=== PATIENT | female | born 1990 | race Caucasian/White ===

== ENCOUNTER 2017-02-15 21:03 | Emergency (ER) | payer BC, MEDICAID ==
[2017-02-15 21:59] VITALS: BMI 24.1
[2017-02-15 22:17] VITALS: BP 116/69; PULSE 100; RESP 24; TEMP 98.3; O2SAT 100
[2017-02-15] MEDS ORDERED: Naproxen 550 mg Tab PO STA (22:25)
--- NOTE | 2017-02-15 22:30 | ED PDOC ---
Arrival/HPI - General Historian: Patient - General Time Seen by Provider: 02/15/17 21:25 - History of Present Illness Narrative History of Present Illness (Text): 02/16/17 01:01 26 yo F with pmh of lupus presents c/o intermittent pain described as a burning sensation to the MTP joints of the L foot x 1.5 wks with stiffness in the AM. States that she has had similar pain to the MTP joins of the R foot before, none today. Denies any trauma, injury, redness, swelling, fever, or any other joint pain at this time. Patient states that she is currently on prednisone daily and she does have a moving worker which she does f/u with. PMD [facility] (Sunil ARGUELLES,Noemí King) Past Medical History - Provider Review Nursing Documentation Reviewed: Yes - Past History Past History: No Previous - Infectious Disease Hx of Infectious Diseases: None - Tetanus Immunization Tetanus Immunization: Unknown - Past Medical History Past Medical History: No Previous - Cardiac Hx Cardiac Disorders: No - Pulmonary Hx Respiratory Disorders: No - Neurological Hx Neurological Disorder: No - HEENT Hx HEENT Disorder: No - Renal Hx Renal Disorder: No - Endocrine/Metabolic Hx Endocrine Disorders: Yes Hx Systemic Lupus Erythematosus: Yes - Hematological/Oncological Hx Blood Disorders: No - Integumentary Hx Dermatological Disorder: No - Musculoskeletal/Rheumatological Hx Musculoskeletal Disorders: No Hx Falls: No - Gastrointestinal Hx Gastrointestinal Disorders: No - Genitourinary/Gynecological Hx Genitourinary Disorders: No - Psychiatric Hx Psychophysiologic Disorder: Yes Hx Anxiety: Yes Hx Substance Use: No - Past Surgical History Past Surgical History: No Previous - Anesthesia Hx Anesthesia: No Hx Anesthesia Reactions: No Hx Malignant Hyperthermia: No - Suicidal Assessment Feels Threatened In Home Enviroment: No Family/Social History - Physician Review Nursing Documentation Reviewed: Yes Family/Social History: Diabetes, Other (lupus) Smoking Status: Current Some Days Smoker Hx Alcohol Use: Yes (occasional) Hx Substance Use: No Hx Substance Use Treatment: No Allergies/Home Meds Allergies/Adverse Reactions: Allergies No Known Allergies Allergy (Verified 10/26/16 17:48) Home Medications: Home Meds Medication Instructions Recorded Confirmed Omeprazole 40 mg PO DAILY 06/07/16 10/26/16 Review of Systems - Review of Systems Constitutional: Normal. absent: Fatigue, Weight Change, Fevers Musculoskeletal: Normal, Arthralgias. absent: Back Pain, Neck Pain Skin: Normal. absent: Rash, Pruritis, Skin Lesions Physical Exam Vital Signs Reviewed: Yes Temperature: Afebrile Blood Pressure: Normal Pulse: Regular Respiratory Rate: Normal Appearance: Positive for: Well-Appearing, Non-Toxic, Comfortable Pain Distress: None Mental Status: Positive for: Alert and Oriented X 3 - Systems Exam Upper Extremity: Present: Normal Inspection, Normal ROM, NORMAL PULSES, Neurovascularly Intact, Capillary Refill < 2s, Norm 2-Pt Discrimination. No: Cyanosis, Edema, Tenderness, Swelling, Erythema, Temperature Abnormalties, Deformity Lower Extremity: Present: Normal Inspection, NORMAL PULSES, Normal ROM, Neurovascularly Intact, Capillary Refill < 2 s. No: Edema, CALF TENDERNESS, Cyanosis, Tenderness, Swelling, Erythema, Deformity, Temperature Abnormalties Neurological: Present: GCS=15, CN II-XII Intact, Speech Normal, Motor Func Grossly Intact, Normal Sensory Function Skin: Present: Warm, Dry, Normal Color. No: Rashes Medical Decision Making ED Course and Treatment: 02/15/17 22:26 26 yo F with pmh of lupus presents c/o pain to the MTP joints of the L foot. PE is normal otherwise, likely arthralgia due to h/o lupus, consider tendonitis and gout. Patient medicated with naprosyn po. Based on history, exam and diagnostic results plan will be for outpatient follow -up with her PMD and her moving worker. Prescription provided. Patient states she fully agrees with and understands discharge instructions. States that she agrees with the plan and disposition. Verbalized and repeated discharge instructions and plan. I have given the patient opportunity to ask any additional questions. Follow up with primary care physician and moving worker in 1-2 days without fail. Advised to take medication as prescribed and to continue all current medications. Return to the emergency room at any time for any new or worsening symptoms. (uSnil ARGUELLES,Noemí King) I was available for consultation during PA evaluation. The chart reviewed by me , and I agree with disposition. The documented history was done by the physician canoe maker. The documented physical exam was done by physician canoe maker. The documented procedures were done by physician canoe maker. (Terry Darby) - Medication Orders Current Medication Orders: Discontinued Medications Naproxen (Anaprox Ds) 550 mg PO ONCE STA Stop: 02/15/17 22:26 Last Admin: 02/15/17 22:42 Dose: 550 mg - PA / MANAGER PRINTING / Resident Statement / has reviewed & agrees with the documentation as recorded. Disposition/Present on Arrival - Present on Arrival Any Indicators Present on Arrival: No History of DVT/PE: No History of Uncontrolled Diabetes: No Urinary Catheter: No History Surgical Site Infection Following: None - Disposition Have Diagnosis and Disposition been Completed?: Yes Disposition Time: 22:15 Patient Plan: Discharge - Disposition Diagnosis: Lupus, Foot pain, left Disposition: HOME/ ROUTINE Condition: GOOD Discharge Instructions (ExitCare): Arthralgia (ED), Autoimmune Disease (ED) Print Language: SETSWA[place] Additional Instructions: Thank you for letting us take care of you today. You were treated for left foot , history of lupus. The emergency medical care you received today was directed at your acute symptoms. If you were prescribed any medication, please fill it and take as directed. It may take several days for your symptoms to resolve. Return to the Emergency Department if your symptoms worsen, do not improve, or if you have any other problems. Please contact your doctor in 2 days for re-evaluation and follow up. Bring any paperwork you were given at discharge with you along with any medications you are taking to your follow up visit. Our treatment cannot replace ongoing medical care by a primary care provider (PCP) outside of the emergency department. Thank you for allowing the [facility] [employer] team to be part of your care today. Prescriptions: Meloxicam [Mobic] 15 mg PO DAILY PRN #30 tab PRN Reason: Pain, Moderate (4-7) Referrals: Epifanio Ashford MD [Primary Care Provider] - Follow up with primary Forms: WORK NOTE
== END 2017-02-15 22:55 | disposition home or self-care (01) ==
LOC: ED 21:03
DX: M32.9 Systemic lupus erythematosus, unspecified (principal); M79.672 Pain in left foot

== ENCOUNTER 2017-03-28 12:00 | Emergency (ER) | payer MEDICAID ==
[2017-03-28 12:01] VITALS: BMI 24.1
[2017-03-28 12:31] VITALS: TEMP 99.5
--- NOTE | 2017-03-28 12:48 | ED PDOC ---
Arrival/HPI - General Chief Complaint: Cough, Cold, Congestion Time Seen by Provider: 03/28/17 12:08 Historian: Patient - History of Present Illness Narrative History of Present Illness (Text): 03/28/17 12:15 Radha Morrison is a 26 year old female whose past medical history includes lupus, GERD and anxiety, presents to the Emergency department complaining of flu -like symptoms. Patient reports that her ex-boyfriend was recently diagnosed with mononucleosis and the following days after she began to have a bad cough. Patient states that along with this she has been spitting phlegm, mild sob, and rhinorrhea. Patient denies chest pain, headache, fever, chills, nausea, vomiting , diarrhea, abdominal pain, dizziness or other complaints. She is on steroids and azathioprine. PMD: Dr. Ashford Symptom Onset: Gradual Symptom Course: Unchanged Modifying Factors (Text): None Associated Symptoms (Text): shortness of breath, phlegm, rhinorrhea Past Medical History - Provider Review Nursing Documentation Reviewed: Yes - Past History Past History: No Previous - Infectious Disease Hx of Infectious Diseases: None - Tetanus Immunization Tetanus Immunization: Unknown - Reproductive Menopause: No - Past Medical History Past Medical History: No Previous - Cardiac Hx Cardiac Disorders: No - Pulmonary Hx Respiratory Disorders: No - Neurological Hx Neurological Disorder: No - HEENT Hx HEENT Disorder: No - Renal Hx Renal Disorder: No - Endocrine/Metabolic Hx Endocrine Disorders: Yes Hx Systemic Lupus Erythematosus: Yes - Hematological/Oncological Hx Blood Disorders: No - Integumentary Hx Dermatological Disorder: No - Musculoskeletal/Rheumatological Hx Musculoskeletal Disorders: No Hx Falls: No - Gastrointestinal Hx Gastrointestinal Disorders: No - Genitourinary/Gynecological Hx Genitourinary Disorders: No - Psychiatric Hx Psychophysiologic Disorder: Yes Hx Anxiety: Yes Hx Substance Use: No - Past Surgical History Past Surgical History: No Previous - Anesthesia Hx Anesthesia: No Hx Anesthesia Reactions: No Hx Malignant Hyperthermia: No - Suicidal Assessment Feels Threatened In Home Enviroment: No Family/Social History - Physician Review Nursing Documentation Reviewed: Yes Family/Social History: Unknown Family HX Smoking Status: Current Some Days Smoker Hx Alcohol Use: Yes (occasional) Hx Substance Use: No Hx Substance Use Treatment: No Allergies/Home Meds Allergies/Adverse Reactions: Allergies No Known Allergies Allergy (Verified 03/28/17 12:09) Home Medications: Home Meds Medication Instructions Recorded Confirmed Alendronate Sodium [Alendronate 35 mg PO QWK 03/28/17 03/28/17 (Fosamax)] Azathioprine [Azasan] 50 mg PO BID 03/28/17 03/28/17 Hydroxychloroquine Sulfate 200 mg PO DAILY 03/28/17 03/28/17 [Plaquenil] Prednisone [Lynn] 5 mg PO DAILY 03/28/17 03/28/17 Zolpidem [Ambien] 10 mg PO HS 03/28/17 03/28/17 Review of Systems - Physician Review All systems were reviewed & negative as marked: Yes - Review of Systems Constitutional: absent: Fevers Respiratory: SOB, Cough, Sputum Cardiovascular: absent: Chest Pain Gastrointestinal: absent: Abdominal Pain Physical Exam Vital Signs Temp Pulse Resp BP Pulse Ox 03/28/17 12:30 99.5 F 03/28/17 12:05 98.8 F 118 H 20 127/90 100 Temperature: Afebrile Blood Pressure: Normal Pulse: Tachycardic Respiratory Rate: Normal Appearance: Positive for: Well-Appearing, Non-Toxic, Comfortable Pain Distress: None Mental Status: Positive for: Alert and Oriented X 3 - Systems Exam Head: Present: Atraumatic, Normocephalic Pupils: Present: PERRL Conjunctiva: Present: Normal Mouth: Present: Moist Mucous Membranes Pharnyx: Present: Normal. No: ERYTHEMA, EXUDATE Neck: Present: Normal Range of Motion Respiratory/Chest: Present: Clear to Auscultation, Good Air Exchange. No: Respiratory Distress, Accessory Muscle Use Cardiovascular: Present: Normal S1, S2, Tachycardic. No: Murmurs Abdomen: Present: Normal Bowel Sounds. No: Tenderness, Distention, Peritoneal Signs Back: Present: Normal Inspection Upper Extremity: Present: Normal Inspection. No: Cyanosis, Edema Lower Extremity: Present: Normal Inspection. No: Edema Neurological: Present: GCS=15, CN II-XII Intact, Speech Normal Skin: Present: Warm, Dry, Normal Color. No: Rashes Psychiatric: Present: Alert, Oriented x 3, Normal Insight, Normal Concentration Medical Decision Making ED Course and Treatment: 03/28/17 12:15 Impression: 26 year old female with cough and shortness of breath. Plan: -- Chest X-ray -- Labs -- Urinalysis -- Robitussin, Xopenex, and Sodium Chlroide -- Reassess and disposition Progress Notes: 03/28/17 14:25 Chest X-ray: Creator : Chasity Pérez V. COMPARISON:10/26/2016 FINDINGS: LUNGS: No active pulmonary disease. PLEURA: No significant pleural effusion identified. No pneumothorax apparent. CARDIOVASCULAR: Normal. OSSEOUS STRUCTURES: No significant abnormalities. VISUALIZED UPPER ABDOMEN: Normal. OTHER FINDINGS: None. IMPRESSION: No active disease. 03/28/17 14:34 Patient with history of SLE on immunosuppressive therapy with a cough. Also noted to have mild tachycardia but afebrile. As a result, blood work sent, showing no signs of neutropenia, which she had before. Urine does show UTI. CXR is normal but symptoms are consistent with bronchitis. Repeat heart rate is normal. Patient is very well-appearing - will d/c on abx for bronchitis and UTI, and patient has been instructed to f/u pmd. - Lab Interpretations Lab Results: 03/28/17 13:25 03/28/17 13:25 Lab Results 03/28/17 13:25: Sodium 141, Potassium 3.3 L, Chloride 105, Carbon Dioxide 26, Anion Gap 13, BUN 14, Creatinine 0.6, Est GFR ( Amer) > 60, Est GFR (Non- Af Amer) > 60, Random Glucose 86, Calcium 8.9, Magnesium 1.6 L, Total Bilirubin 0.6, AST 36, ALT 37, Alkaline Phosphatase 40, Total Protein 7.1, Albumin 3.5, Globulin 3.6, Albumin/Globulin Ratio 1.0 L, Lipase 143 03/28/17 13:25: WBC 3.9 L D, RBC 3.42 L, Hgb 10.8 L, Hct 34.0 L, MCV 99.4, MCH 31.6, MCHC 31.8, RDW 16.0 H, Plt Count 267, MPV 10.2, Gran % 84.9 H, Lymph % ( Auto) 10.2 L, [place] % (Auto) 4.1, Eos % (Auto) 0.8 L, Baso % (Auto) 0.0, Gran # 3.32, Lymph # 0.4 L, [place] # 0.2, Eos # 0.0, Baso # 0.00 08/02/17 12:20: Urine Color Yellow, Urine Appearance Sl cloudy, Urine pH 6.5, Ur Specific [place] >= 1.030, Urine Protein >=300 H, Urine Glucose (UA) Negative , Urine Ketones Negative, Urine Blood Moderate H, Urine Nitrate Negative, Urine Bilirubin Negative, Urine Urobilinogen 1.0 H, Ur Leukocyte Esterase Trace H, Urine RBC 5 - 10, Urine WBC Tntc, Ur Epithelial Cells 6 - 8, Urine Bacteria Mod I have reviewed the lab results: Yes - RAD Interpretation Radiology Orders: 03/28/17 12:21 CHEST TWO VIEWS (PA/LAT) [RAD] Stat Risk Officer: Radiologist - Medication Orders Current Medication Orders: Discontinued Medications Guaifenesin (Robitussin) 400 mg PO ONCE STA Stop: 03/28/17 12:52 Sodium Chloride (Sodium Chloride 0.9%) 1,000 mls @ 999 mls/hr IV .Q1H1M STA Stop: 03/28/17 13:51 Ceftriaxone Sodium (Rocephin 1 Gram Ivpb) 1 gm in 100 mls @ 200 mls/hr IV ONCE STA PRN Reason: Protocol Stop: 03/28/17 13:44 Levalbuterol HCl (Xopenex) 0.63 mg IH ONCE STA Stop: 03/28/17 12:51 Potassium Chloride (Potassium Chloride Oral Soln) 40 meq PO STAT STA Stop: 03/28/17 13:59 - Scribe Statement The provider has reviewed the documentation as recorded by the Scribe 03/28/2017 Becky Herman MD Scribe Attestation: All medical record entries made by the Scribe were at my direction and personally dictated by me. I have reviewed the chart and agree that the record accurately reflects my personal performance of the history, physical exam, medical decision making, and the department course for this patient. I have also personally directed, reviewed, and agree with the discharge instructions and disposition. Disposition/Present on Arrival - Present on Arrival Any Indicators Present on Arrival: No History of DVT/PE: No History of Uncontrolled Diabetes: No Urinary Catheter: No History of Decub. Ulcer: No History Surgical Site Infection Following: None - Disposition Have Diagnosis and Disposition been Completed?: Yes Diagnosis: UTI (urinary tract infection), Bronchitis Disposition: HOME/ ROUTINE Disposition Time: 14:35 Patient Plan: Discharge Condition: GOOD Discharge Instructions (ExitCare): Acute Bronchitis (ED), Urinary Tract Infection in Women (ED) Additional Instructions: Drink plenty of fluids. Take the medications as prescribed. Follow up with your primary care doctor. Return to the emergency department if any new concerning symptoms. Prescriptions: Azithromycin [Zithromax] 2 tab PO DAILY #6 tab guaiFENesin/Codeine [Codeine/Guaifenesin 10 MG/5 Ml-100 MG/5 Ml 5] 2 tsp PO Q6H PRN #120 ml PRN Reason: Cough Nitrofurantoin Macrocrystals [Macrobid] 100 mg PO BID #14 cap Referrals: Epifanio Ashford MD [Primary Care Provider] - Follow up with primary Forms: [employer] (Welsh)
[2017-03-28] MEDS ORDERED: Levalbuterol 0.63 MG/3 ML Inhal Soln UD IH STA (12:50)
[2017-03-28 12:51] LABS: PH,URINE 6.5 (4.7-8.0); URINE BILIRUBIN NEGATIVE (NEGATIVE); URINE BLOOD MODERATE (NEGATIVE); URINE GLUCOSE (UA) NEGATIVE (NEGATIVE); URINE LEUKOCYTE ESTERASE TRACE Leu/uL (NEGATIVE); URINE NITRATE NEGATIVE (NEGATIVE); URINE PROTEIN >=300 mg/dL (<30 mg/dL)
[2017-03-28] MEDS ORDERED: guaiFENesin 200 mg/10 ml Syrup UD PO STA (12:51)
[2017-03-28] MEDS ORDERED: Sodium Chloride 0.9% 1,000 ML IV STA (12:51)
[2017-03-28 12:52] LABS: URINE APPEARANCE SL CLOUDY (CLEAR); URINE COLOR YELLOW (YELLOW)
[2017-03-28 12:55] LABS: URINE BACTERIA MOD (NEG); URINE WBC TNTC /hpf (0-6)
[2017-03-28] MEDS ORDERED: cefTRIAXone 1 gm 1 GM/100 ML BAG IV STA (13:15)
[2017-03-28 13:42] LABS: EOS % 0.8 % (1.5-5.0); GRAN # 3.32 (1.4-6.5); GRAN % 84.9 % (50.0-68.0); HEMOGLOBIN 10.8 gm/dL (12.0-16.0); LYMPH # 0.4 (1.2-3.4); LYMPH % 10.2 % (22.0-35.0); MEAN CELL VOLUME 99.4 fL (80.0-105.0); MEAN CORPUSCULAR HEMOGLOBIN 31.6 pg (25.0-35.0); MEAN CORPUSCULAR HGB CONC 31.8 g/dl (31.0-37.0); MEAN PLATELET VOLUME 10.2 fl (7.0-11.0); MONO # 0.2 (0.1-0.6); MONO % 4.1 % (1.0-6.0); PLATELET COUNT 267 10^3/uL (120.0-450.0); RBC 3.42 10^6/uL (3.5-6.1); WHITE BLOOD COUNT 3.9 10^3/ul (4.5-11.0)
[2017-03-28 13:51] LABS: ALBUMIN 3.5 g/dL (3.0-4.8); ALT/SGPT 37 U/L (7-56); AST/SGOT 36 U/L (15-39); BLOOD UREA NITROGEN 14 mg/dL (7-21); CALCIUM 8.9 mg/dL (8.4-10.5); GFR AFRICAN-AMERICAN > 60; GFR NON-AFRICAN AMERICAN > 60; LIPASE 143 U/L (23-300); MAGNESIUM 1.6 mg/dL (1.7-2.2)
[2017-03-28] MEDS ORDERED: Potassium Chloride 40 mEq/30 ml LIQ UD PO STA (13:58)
--- NOTE | 2017-03-28 14:21 | RAD ---
HISTORY: cough COMPARISON: 10/26/2016 TECHNIQUE: Chest PA and lateral FINDINGS: LUNGS: No active pulmonary disease. PLEURA: No significant pleural effusion identified. No pneumothorax apparent. CARDIOVASCULAR: Normal. OSSEOUS STRUCTURES: No significant abnormalities. VISUALIZED UPPER ABDOMEN: Normal. OTHER FINDINGS: None. IMPRESSION: No active disease.
[2017-03-28 16:55] VITALS: BP 123/69; PULSE 91; RESP 18; O2SAT 99
== END 2017-03-28 17:00 | disposition home or self-care (01) ==
LOC: ED 12:00
DX: J20.9 Acute bronchitis, unspecified (principal); N39.0 Urinary tract infection, site not specified; Z72.0 Tobacco use
CPT/HCPCS: 71020; 80053; 81001; 83690; 83735; 85025; 86308; 87086; 96360; 99284; J0696; J3480; J7040